=== PATIENT | female | born 1970 | race Caucasian/White ===

== ENCOUNTER 2018-11-13 11:58 | Emergency (ER) | payer MEDICAID ==
[~2018-11-13] VITALS: Ht 152.4 cm; Wt 98.0 kg
[2018-11-13] MEDS ORDERED: ACETAMINOPHEN WITH CODEINE 300/30MG TABLET PO ONE (15:15)
[2018-11-13 15:36] VITALS: BP 121/82
== END 2018-11-13 17:49 | disposition home or self-care (01) ==
LOC: ER 12:36 → SUPCPDRO 17:26 → ER 17:49
DX: M25.561 Pain in right knee (principal); M79.89 Other specified soft tissue disorders; M19.90 Unspecified osteoarthritis, unspecified site; Z90.49 Acquired absence of other specified parts of digestive tract
CPT/HCPCS: 93971; 99284